=== PATIENT | male | born 1985 | race Caucasian/White ===

== ENCOUNTER 2022-05-09 12:17 | Emergency (ER) | payer SELFPAY ==
[~2022-05-09] VITALS: Ht 172.7 cm; Wt 74.8 kg
[2022-05-09 12:26] VITALS: BP 122/76
--- NOTE | 2022-05-09 12:28 | NUR ---
PT AMBULATED TO BED 7
--- NOTE | 2022-05-09 12:33 | NUR ---
36 Y/O MALE BIB SELF C/O LEFT EYE BLURRING AND DIZZINESS AND GUARDADO X4DAYS, DENIES LOC, DENIES HEAD TRAUMA/FALL. NO REDNESS, SWELLING NOTED, NO DISCHARGE NOTED ON THE AFFECTED EYE NKA PMH: DENIES
[2022-05-09 13:45] LABS: BASOPHILS % (AUTO) 0.6 % (0.0-2.0); EOSINOPHILS # (AUTO) 0.2 K/uL (0-0.4); EOSINOPHILS % (AUTO) 4.3 % (0.0-4.0); HEMATOCRIT 44.6 % (36-52); HEMOGLOBIN 15.5 g/dL (12.0-18.0); LYMPHOCYTES # (AUTO) 1.6 K/uL (2.0-11.5); LYMPHOCYTES % (AUTO) 31.3 % (20.5-51.1); MEAN CORPUSCULAR HEMOGLOBIN 31 pg (27-31); MEAN CORPUSCULAR HGB CONC 35 g/dL (33-37); MEAN CORPUSCULAR VOLUME 90.3 fL (80-94); MONOCYTES # (AUTO) 0.5 K/uL (0.8-1.0); MONOCYTES % (AUTO) 9.7 % (1.7-9.3); NEUTROPHILS # (AUTO) 2.7 K/uL (1.8-7.7); NEUTROPHILS % (AUTO) 54.1 % (42.2-75.2); PLATELET COUNT (AUTO) 213 K/uL (140-450); RED BLOOD CELL COUNT(AUTO) 4.94 MIL/uL (4.20-6.10); RED CELL DISTRIBUTION WIDTH 13.5 % (11.6-13.7); WHITE BLOOD COUNT (AUTO) 5.1 K/uL (4.8-10.8)
[2022-05-09 13:47] LABS: ALBUMIN 3.4 g/dL (3.4-5.0); ANION GAP 11.5 (8-16); CARBON DIOXIDE 27.6 mmol/L (21-32); CREATININE 0.8 mg/dL (0.6-1.3); MAGNESIUM 1.9 mg/dL (1.8-2.4); POTASSIUM 4.1 mmol/L (3.5-5.1); TOTAL BILIRUBIN 0.7 mg/dL (0.0-1.0)
--- NOTE | 2022-05-09 14:06 | NUR ---
Patient discharged with v/s stable. Written and verbal after care instructions ABOUT BLURRED VISION given and explained. Patient verbalized understanding. Ambulatory with steady gait. All questions addressed prior to discharge. Advised to follow up with PMD.
== END 2022-05-09 14:06 | disposition home or self-care (01) ==
LOC: MED 12:17
DX: H53.8 Other visual disturbances (principal)
CPT/HCPCS: 36415; 80053; 83735; 84100; 85025; 99283